=== PATIENT | male | born 1970 | race Caucasian/White ===

== ENCOUNTER 2017-05-16 02:49 | Emergency (ER) | payer BC ==
[~2017-05-16 02:49] MED LIST: DIO80 PO; NIC21 TD; PROINH INH; TRAZODONE50 M1 PO; VICES PO
[2017-05-16 02:54] VITALS: BP 125/81
== END 2017-05-16 03:51 | disposition left against medical advice (07) ==
LOC: ED 02:49
DX: Z53.21 Procedure and treatment not carried out due to patient leaving prior to being seen by health care provider (principal)

== ENCOUNTER 2018-02-10 22:55 | Emergency (ER) | payer BC ==
[~2018-02-10] VITALS: Ht 177.8 cm; Wt 88.5 kg
[2018-02-10 23:08] VITALS: Ht 177.8 cm; Wt 88.5 kg
[2018-02-11 01:13] LABS: BASOPHIL % 0.5 % (0-2); PLATELET COUNT 350 x10^3mcL (130-400); RED CELL DISTRIBUTION WIDTH 13.6 % (11.5-14.5)
[2018-02-11 01:24] LABS: CALCIUM 8.7 mg/dL (8.5-10.1); CARBON DIOXIDE 27.1 mmol/L (21-32); CHLORIDE SERUM 105 mmol/L (98-107); GFR1 > 60 mL/min; GLUCOSE SERUM 97 mg/dL (74-106); POTASSIUM SERUM 3.9 mmol/L (3.5-5.1); SODIUM SERUM 137 mmol/L (136-145)
[2018-02-11 01:29] LABS: ALBUMIN 3.7 g/dL (3.4-5.0); ALKALINE PHOSPHATASE 57 U/L (46-116); ALT/SGPT 22 U/L (16-63); AST/SGOT 12 U/L (15-37); BILIRUBIN TOTAL 0.6 mg/dL (0.20-1.00)
[2018-02-11 03:06] VITALS: BP 140/64
== END 2018-02-11 03:06 | disposition left against medical advice (07) ==
LOC: ED 22:55
PROVIDERS: Emergency Medicine
DX: R07.89 Other chest pain (principal); J45.909 Unspecified asthma, uncomplicated; G89.29 Other chronic pain; M25.50 Pain in unspecified joint; R61 Generalized hyperhidrosis
CPT/HCPCS: 36415; 83880

== ENCOUNTER 2019-03-15 23:07 | Emergency (ER) | payer SELFPAY ==
[~2019-03-15] VITALS: Ht 175.3 cm; Wt 88.5 kg
[2019-03-15 23:12] VITALS: Ht 175.3 cm; Wt 88.5 kg
[2019-03-15 23:34] LABS: PLATELET COUNT 366 x10^3mcL (130-400); RED CELL DISTRIBUTION WIDTH 13.6 % (11.5-14.5)
[2019-03-15 23:35] LABS: BASOPHIL % 0.8 % (0-2)
[2019-03-15 23:43] LABS: CALCIUM 8.9 mg/dL (8.5-10.1); CARBON DIOXIDE 24.3 mmol/L (21-32); CHLORIDE SERUM 103 mmol/L (98-107); CREATININE SERUM 1.1 mg/dL (0.7-1.3); GFR1 > 60 mL/min; GLUCOSE SERUM 139 mg/dL (74-106); POTASSIUM SERUM 3.6 mmol/L (3.5-5.1); SODIUM SERUM 139 mmol/L (136-145)
[2019-03-15 23:48] LABS: ALBUMIN 3.9 g/dL (3.4-5.0); ALKALINE PHOSPHATASE 74 U/L (46-116); ALT/SGPT 19 U/L (16-63); AST/SGOT 13 U/L (15-37); BILIRUBIN TOTAL 0.3 mg/dL (0.20-1.00); TOTAL PROTEIN, SERUM 7.1 g/dL (6.4-8.2)
[2019-03-16 00:25] VITALS: BP 129/67
== END 2019-03-16 00:25 | disposition home or self-care (01) ==
LOC: ED 23:07
PROVIDERS: Emergency Medicine
DX: R07.89 Other chest pain (principal); F41.9 Anxiety disorder, unspecified; J45.909 Unspecified asthma, uncomplicated; I10 Essential (primary) hypertension; G89.29 Other chronic pain
CPT/HCPCS: 36415; Q0092